=== PATIENT | female | born 1970 | race Caucasian/White ===

== ENCOUNTER → 2016-05-16 | Outpatient (CLI) | payer BC ==
--- NOTE | ~2016-05-16 | MY11 ---
[facility] A Service of [facility] RADIOLOGY TEXT RESULTS PATIENT: ASHKAN MORENO LOCATION: [facility] : 72 UNIT #: [id number] AGE: [address]: Hamida Owusu MD SEX: F ORDER DR: [id number] [facility] [address] [place], [place] [address] [id number] O MR#: [id number] #: [id number] NAME: ASHKAN MORENO : 1970 SEX: F STUDY DATE/TIME: 05/16/2016 14:59 UNIT: [facility] ROOM: STUDY DESCRIPTION: MY Mammogram Screening Dig Frantz Attending Physician: Hamida Owusu M.D. Ordering Physician: Hamida Owusu M.D. Primary Care Physician: Hamida Owusu M.D. MEDICAL IMAGING REPORT This report is preliminary unless electronic signature is present EXAM Screening mammogram, 05/16/2016. HISTORY 45-year-old with no personal history, but a positive family history of breast cancer in mother. No current complaints. FINDINGS Routine, digital, screening views of both breasts were obtained. The study was reviewed with an FDA-approved CAD device. There are no comparisons. Breast parenchyma shows scattered fibroglandular densities. No masses or suspicious microcalcifications are seen. IMPRESSION Negative mammogram. Routine screening in 1 year is recommended. Patients over the age of 40 are entered into a reminder system with target due date for the next mammogram. A result letter will also be sent to the patient. BIRADS: 1 Negative Dictated by... Jakob Moseley Jr., M.D. THIS IS AN ELECTRONICALLY VERIFIED REPORT Jakob Moseley Jr., M.D. at 05/17/2016 4:52 PM [facility] A Service [facility] RADIOLOGY TEXT RESULTS PATIENT: ASHKAN MORENO LOCATION: [facility] : 72 UNIT #: [id number] AGE: [address]: Hamida Owusu MD SEX: F ORDER DR: WESTON/ted TD: 05/17/2016 12:02 JOB #: [id number] MEDICAL IMAGING REPORT COPY
== END | disposition home or self-care (01) ==
LOC: CWCC 14:38
DX: Z12.31 Encounter for screening mammogram for malignant neoplasm of breast (principal); Z80.3 Family history of malignant neoplasm of breast
CPT/HCPCS: G0202